=== PATIENT | male | born 1945 | race Caucasian/White ===

== ENCOUNTER 2017-08-16 10:44 | Inpatient (IN) | payer MEDICARE, MEDICAID ==
[~2017-08-16] VITALS: Ht 182.9 cm; Wt 96.9 kg
[2017-08-16] MEDS ORDERED: HYDR-305 PO (11:02)
[2017-08-16] MEDS ORDERED: LISI-660 PO (11:02)
[2017-08-16] MEDS ORDERED: TIZA4TAB4 PO (11:02)
[2017-08-16] MEDS ORDERED: METF500T4 PO (11:02)
[2017-08-16] MEDS ORDERED: PREG50 PO (11:02)
[2017-08-16] MEDS ORDERED: DOXA2TAB PO (11:02)
[2017-08-16 11:23] LABS: BASOPHILS % (AUTO) 1.3 % (0.0-2.0); EOSINOPHILS % (AUTO) 1.5 % (1.0-6.0); HEMATOCRIT 38.4 % (41-53); LYMPHOCYTES # (AUTO) 1.9 K/uL (1.0-4.8); LYMPHOCYTES % (AUTO) 26.1 % (22.0-44.0); MEAN CORPUSCULAR HEMOGLOBIN 30.6 pg (26.0-34.0); MEAN CORPUSCULAR HGB CONC 33.9 G/dL (31.0-37.0); MEAN CORPUSCULAR VOLUME 90 fL (80-100); MONOCYTES # (AUTO) 0.3 K/uL (0.1-1.0); MONOCYTES % (AUTO) 4.6 % (2.0-9.0); NEUTROPHILS # (AUTO) 4.8 K/uL (1.8-7.7); NEUTROPHILS % (AUTO) 66.5 % (40.0-70.0); PLATELET COUNT (AUTO) 295 K/uL (150-450); RED BLOOD CELL COUNT(AUTO) 4.26 MIL/uL (4.50-5.90); WHITE BLOOD COUNT (AUTO) 7.2 K/uL (4.5-11.0)
[2017-08-16 11:27] LABS: GLUCOSE,POINT OF CARE 98 MG/DL (70-110)
[2017-08-16 11:59] LABS: ANION GAP 11 mmol/L (8-16); CALCIUM, TOTAL 8.6 mg/dL (8.8-10.5); CARBON DIOXIDE 23 mmol/L (22-29); CHLORIDE 106 mmol/L (98-107); CREATININE 1.43 mg/dL (0.60-1.30); GLOMERULAR FILTR. RATE CALC 49 mL/min (>60); POTASSIUM 4.1 mmol/L (3.5-5.1); SODIUM SERUM 140 mmol/L (136-145); UREA NITROGEN, BLOOD 9 mg/dL (7-18)
[2017-08-16 12:06] LABS: ALANINE AMINOTRANSFERASE 33 U/L (12-78); ALBUMIN 3.9 g/dL (3.4-5.0); ASPARTATE AMINOTRANSFERASE 26 U/L (15-37); BILIRUBIN,TOTAL 0.3 mg/dL (0.1-1.0); TOTAL PROTEIN, SERUM 8.3 g/dL (6.4-8.2)
[2017-08-16] MEDS ORDERED: HALOPERIDOL 5 MG TABLET PO PRN (12:45)
[2017-08-16] MEDS ORDERED: LORazepam 2 MG TABLET PO PRN (12:45)
[2017-08-16 14:37] VITALS: BP 118/82
[2017-08-16] MEDS ORDERED: PNEUMOCOCCAL VACCINE POLYVALENT 0.5 ML VIAL [PPSV23] IM ONE (15:15)
[2017-08-16 15:16] LABS: GLUCOSE,POINT OF CARE 109 MG/DL (70-110)
[2017-08-16 16:11] VITALS: BP 113/78
[2017-08-16] MEDS: ZOLPIDEM TARTRATE 10 MG TABLET PO PRN (21:32)
[2017-08-17 00:01] VITALS: BP 111/82
[2017-08-17 08:26] VITALS: BP 102/72
[2017-08-17 08:48] LABS: CHOL/HDL RATIO 5.3 (4.2-7.3)
[2017-08-17] MEDS: DENTURE ADHESIVE 68 GM CREAM DT PRN (13:50)
[2017-08-17 16:14] VITALS: BP 128/81
[2017-08-17] MEDS ORDERED: GLUCAGON,HUMAN RECOMBINANT 1 MG VIAL IM PRN (18:00)
[2017-08-17] MEDS ORDERED: INSULIN ASPART 100 UNITS/ML SQ PRN (18:00)
[2017-08-17 20:37] LABS: GLUCOSE,POINT OF CARE 159 MG/DL (70-110)
[2017-08-17] MEDS: ZOLPIDEM TARTRATE 10 MG TABLET PO PRN (21:03)
[2017-08-18 01:25] VITALS: BP 118/77
[2017-08-18 05:06] VITALS: BP 123/91
[2017-08-18] MEDS: IBUPROFEN 600 MG TABLET PO PRN ×2 (05:08→17:23)
[2017-08-18 06:23] LABS: GLUCOSE,POINT OF CARE 114 MG/DL (70-110)
[2017-08-18] MEDS: MetFORMIN HCL 500 MG TABLET PO SCH ×2 (06:26→16:53)
[2017-08-18 08:10] LABS: BASOPHILS # (AUTO) 0.03 K/uL (0.00-0.20); BASOPHILS % (AUTO) 0.4 % (0.0-2.0); EOSINOPHILS # (AUTO) 0.12 K/uL (0.00-0.70); EOSINOPHILS % (AUTO) 1.81 % (1.0-6.0); HEMATOCRIT 39.1 % (41-53); HEMOGLOBIN 13.3 g/dL (13.5-17.5); LYMPHOCYTES # (AUTO) 1.6 K/uL (1.0-4.8); LYMPHOCYTES % (AUTO) 24.8 % (22.0-44.0); MEAN CORPUSCULAR HEMOGLOBIN 30.5 pg (26.0-34.0); MEAN CORPUSCULAR HGB CONC 34.1 G/dL (31.0-37.0); MEAN CORPUSCULAR VOLUME 89 fL (80-100); MONOCYTES # (AUTO) 0.3 K/uL (0.1-1.0); MONOCYTES % (AUTO) 5.1 % (2.0-9.0); NEUTROPHILS # (AUTO) 4.3 K/uL (1.8-7.7); NEUTROPHILS % (AUTO) 67.9 % (40.0-70.0); PLATELET COUNT (AUTO) 294 K/uL (150-450); RED BLOOD CELL COUNT(AUTO) 4.38 MIL/uL (4.50-5.90); RED CELL DISTRIBUTION WIDTH 13.8 % (11.5-14.5); WHITE BLOOD COUNT (AUTO) 6.4 K/uL (4.5-11.0)
[2017-08-18 08:20] VITALS: BP 113/74
[2017-08-18] MEDS: ARIPiprazole 5 MG TABLET PO SCH (08:49)
[2017-08-18] MEDS: DOXAZOSIN MESYLATE 2 MG TABLET PO SCH ×2 (08:49→17:00)
[2017-08-18] MEDS: LISINOPRIL 5 MG TABLET PO SCH (08:49)
[2017-08-18] MEDS: VENLAFAXINE HCL 150 MG ER CAPSULE PO SCH (08:49)
[2017-08-18 09:17] LABS: HEMOGLOBIN A1C 6.1 % (4.5-6.2)
[2017-08-18 09:20] LABS: ALANINE AMINOTRANSFERASE 28 U/L (12-78); ALBUMIN 3.6 g/dL (3.4-5.0); ANION GAP 10 mmol/L (8-16); ASPARTATE AMINOTRANSFERASE 22 U/L (15-37); BILIRUBIN,TOTAL 0.3 mg/dL (0.1-1.0); CALCIUM, TOTAL 8.6 mg/dL (8.8-10.5); CARBON DIOXIDE 24 mmol/L (22-29); CHLORIDE 105 mmol/L (98-107); CHOL/HDL RATIO 5.2 (4.2-7.3); CREATINE KINASE MB 0.6 ng/mL (0-5); CREATINE KINASE, TOTAL 93 U/L (39-308); CREATININE 1.36 mg/dL (0.60-1.30); GLOMERULAR FILTR. RATE CALC 52 mL/min (>60); POTASSIUM 4.1 mmol/L (3.5-5.1); SODIUM SERUM 139 mmol/L (136-145); THYROID STIMULATING HORMONE 1.51 uIU/mL (0.36-3.74); TOTAL PROTEIN, SERUM 7.9 g/dL (6.4-8.2); UREA NITROGEN, BLOOD 14 mg/dL (7-18)
[2017-08-18] MEDS: BACITRACIN 28.4 GM OINTMENT TP SCH ×2 (09:37→16:54)
[2017-08-18 10:13] LABS: VITAMIN B12 LEVEL 580 pg/mL (211-911)
[2017-08-18 11:22] LABS: GLUCOSE,POINT OF CARE 105 MG/DL (70-110)
[2017-08-18] MEDS ORDERED: BENZOCAINE 10% 7 GM GEL TP PRN (14:30)
[2017-08-18 16:05] VITALS: BP 107/66
[2017-08-18 16:32] LABS: GLUCOSE,POINT OF CARE 109 MG/DL (70-110)
[2017-08-18 17:25] VITALS: BP 104/68
[2017-08-18 20:37] LABS: GLUCOSE,POINT OF CARE 111 MG/DL (70-110)
[2017-08-18] MEDS: ZOLPIDEM TARTRATE 10 MG TABLET PO PRN (20:52)
[2017-08-19 02:29] VITALS: BP 111/82
[2017-08-19] MEDS: IBUPROFEN 600 MG TABLET PO PRN (02:30)
[2017-08-19 04:30] VITALS: BP 110/74
[2017-08-19] MEDS: ACETAMINOPHEN 325 MG TABLET PO PRN (04:35)
[2017-08-19 06:22] LABS: GLUCOSE,POINT OF CARE 104 MG/DL (70-110)
[2017-08-19] MEDS: MetFORMIN HCL 500 MG TABLET PO SCH ×2 (06:59→16:35)
[2017-08-19 08:11] LABS: HEPATITIS Bs ANTIGEN SCREEN P Negative (Negative); HEPATITIS C AB SCREEN <0.1 s/co ratio (0.0-0.9)
[2017-08-19 08:23] VITALS: BP 112/61
[2017-08-19] MEDS: LISINOPRIL 5 MG TABLET PO SCH (08:24)
[2017-08-19] MEDS: VENLAFAXINE HCL 150 MG ER CAPSULE PO SCH (08:24)
[2017-08-19] MEDS: DOXAZOSIN MESYLATE 2 MG TABLET PO SCH ×2 (08:24→16:36)
[2017-08-19] MEDS: ARIPiprazole 5 MG TABLET PO SCH (08:24)
[2017-08-19] MEDS: BACITRACIN 28.4 GM OINTMENT TP SCH ×2 (08:32→16:36)
[2017-08-19 11:54] LABS: GLUCOSE,POINT OF CARE 99 MG/DL (70-110)
[2017-08-19] MEDS: LIDOCAINE HCL 5% TRANSDERMAL PATCH TD SCH (13:02)
[2017-08-19 16:06] VITALS: BP 122/65
[2017-08-19 16:49] LABS: GLUCOSE,POINT OF CARE 107 MG/DL (70-110)
[2017-08-19 20:32] LABS: GLUCOSE,POINT OF CARE 107 MG/DL (70-110)
[2017-08-19] MEDS: -LIDODERM PATCH NOTE- MISC SCH ×2 (20:36)
[2017-08-19] MEDS: ZOLPIDEM TARTRATE 10 MG TABLET PO PRN (21:14)
[2017-08-20 05:23] VITALS: BP 106/69
[2017-08-20 07:02] LABS: GLUCOSE,POINT OF CARE 103 MG/DL (70-110)
[2017-08-20] MEDS: MetFORMIN HCL 500 MG TABLET PO SCH ×2 (07:20→16:57)
[2017-08-20 08:54] VITALS: BP 107/70
[2017-08-20 08:59] VITALS: BP 115/81
[2017-08-20] MEDS: LISINOPRIL 5 MG TABLET PO SCH (08:59)
[2017-08-20] MEDS: LIDOCAINE HCL 5% TRANSDERMAL PATCH TD SCH (08:59)
[2017-08-20] MEDS: BACITRACIN 28.4 GM OINTMENT TP SCH ×2 (08:59→16:57)
[2017-08-20] MEDS: VENLAFAXINE HCL 150 MG ER CAPSULE PO SCH (08:59)
[2017-08-20] MEDS: ARIPiprazole 5 MG TABLET PO SCH (08:59)
[2017-08-20] MEDS: DOXAZOSIN MESYLATE 2 MG TABLET PO SCH ×2 (08:59→16:57)
[2017-08-20 12:48] LABS: GLUCOSE,POINT OF CARE 111 MG/DL (70-110)
[2017-08-20 12:57] VITALS: BP 112/78
[2017-08-20] MEDS: IBUPROFEN 600 MG TABLET PO PRN (12:57)
[2017-08-20 16:14] VITALS: BP 117/63
[2017-08-20 17:02] LABS: GLUCOSE,POINT OF CARE 109 MG/DL (70-110)
[2017-08-20] MEDS: DENTURE ADHESIVE 68 GM CREAM DT PRN (18:44)
[2017-08-20] MEDS: ZOLPIDEM TARTRATE 10 MG TABLET PO PRN (20:57)
[2017-08-20] MEDS: -LIDODERM PATCH NOTE- MISC SCH ×2 (20:57)
[2017-08-20 21:13] LABS: GLUCOSE,POINT OF CARE 115 MG/DL (70-110)
[2017-08-21 02:43] VITALS: BP 106/65
[2017-08-21] MEDS: IBUPROFEN 600 MG TABLET PO PRN (06:28)
[2017-08-21 06:33] LABS: GLUCOSE,POINT OF CARE 102 MG/DL (70-110)
[2017-08-21] MEDS: MetFORMIN HCL 500 MG TABLET PO SCH ×2 (06:45→16:43)
[2017-08-21 08:06] VITALS: BP 120/70
[2017-08-21] MEDS: LISINOPRIL 5 MG TABLET PO SCH (08:09)
[2017-08-21] MEDS: ARIPiprazole 5 MG TABLET PO SCH (08:10)
[2017-08-21] MEDS: DOXAZOSIN MESYLATE 2 MG TABLET PO SCH ×2 (08:10→16:43)
[2017-08-21] MEDS: VENLAFAXINE HCL 150 MG ER CAPSULE PO SCH (08:10)
[2017-08-21] MEDS: LIDOCAINE HCL 5% TRANSDERMAL PATCH TD SCH (08:15)
[2017-08-21] MEDS: BACITRACIN 28.4 GM OINTMENT TP SCH ×2 (08:15→16:44)
[2017-08-21 11:53] LABS: GLUCOSE,POINT OF CARE 106 MG/DL (70-110)
[2017-08-21 16:33] VITALS: BP 121/66
[2017-08-21] MEDS: ZOLPIDEM TARTRATE 10 MG TABLET PO PRN (20:57)
[2017-08-21] MEDS: -LIDODERM PATCH NOTE- MISC SCH ×2 (20:57)
[2017-08-22 06:04] LABS: GLUCOSE,POINT OF CARE 103 MG/DL (70-110)
[2017-08-22 06:04] LABS: GLUCOSE,POINT OF CARE 98 MG/DL (70-110)
[2017-08-22] MEDS: IBUPROFEN 600 MG TABLET PO PRN ×2 (06:22→13:28)
[2017-08-22] MEDS: MetFORMIN HCL 500 MG TABLET PO SCH (06:40)
[2017-08-22 07:03] LABS: GLUCOSE,POINT OF CARE 95 MG/DL (70-110)
[2017-08-22] MEDS: VENLAFAXINE HCL 150 MG ER CAPSULE PO SCH (08:44)
[2017-08-22] MEDS: ARIPiprazole 5 MG TABLET PO SCH (08:44)
[2017-08-22] MEDS: DOXAZOSIN MESYLATE 2 MG TABLET PO SCH ×2 (08:44→17:02)
[2017-08-22] MEDS: BACITRACIN 28.4 GM OINTMENT TP SCH ×2 (08:44→17:02)
[2017-08-22] MEDS: LISINOPRIL 5 MG TABLET PO SCH (08:44)
[2017-08-22] MEDS: LIDOCAINE HCL 5% TRANSDERMAL PATCH TD SCH (08:45)
[2017-08-22 08:57] VITALS: BP 123/71
[2017-08-22 11:38] LABS: GLUCOSE,POINT OF CARE 97 MG/DL (70-110)
[2017-08-22 13:28] VITALS: BP 123/81
[2017-08-22 16:05] VITALS: BP 110/74
[2017-08-22 16:27] LABS: GLUCOSE,POINT OF CARE 122 MG/DL (70-110)
[2017-08-22] MEDS: -LIDODERM PATCH NOTE- MISC SCH ×2 (20:31)
[2017-08-22 20:32] LABS: GLUCOSE,POINT OF CARE 102 MG/DL (70-110)
[2017-08-23] MEDS: ZOLPIDEM TARTRATE 10 MG TABLET PO PRN ×2 (00:06→22:13)
[2017-08-23 00:15] VITALS: BP 123/72
[2017-08-23] MEDS: IBUPROFEN 600 MG TABLET PO PRN ×2 (05:41→16:19)
[2017-08-23 06:22] LABS: GLUCOSE,POINT OF CARE 105 MG/DL (70-110)
[2017-08-23 08:00] VITALS: BP 114/82
[2017-08-23] MEDS: ARIPiprazole 5 MG TABLET PO SCH (09:55)
[2017-08-23] MEDS: LIDOCAINE HCL 5% TRANSDERMAL PATCH TD SCH (09:55)
[2017-08-23] MEDS: LISINOPRIL 5 MG TABLET PO SCH (09:55)
[2017-08-23] MEDS: MetFORMIN HCL 500 MG TABLET PO SCH (09:56)
[2017-08-23] MEDS: DOXAZOSIN MESYLATE 2 MG TABLET PO SCH ×2 (09:56→16:55)
[2017-08-23] MEDS: VENLAFAXINE HCL 150 MG ER CAPSULE PO SCH (09:56)
[2017-08-23 11:32] LABS: GLUCOSE,POINT OF CARE 113 MG/DL (70-110)
[2017-08-23 16:17] VITALS: BP 117/76
[2017-08-23 16:47] LABS: GLUCOSE,POINT OF CARE 95 MG/DL (70-110)
[2017-08-23 20:27] LABS: GLUCOSE,POINT OF CARE 117 MG/DL (70-110)
[2017-08-23] MEDS: -LIDODERM PATCH NOTE- MISC SCH ×2 (20:34)
[2017-08-24 01:21] VITALS: BP 115/66
[2017-08-24] MEDS: IBUPROFEN 600 MG TABLET PO PRN ×2 (06:10→13:08)
[2017-08-24] MEDS: DENTURE ADHESIVE 68 GM CREAM DT PRN (06:11)
[2017-08-24 07:02] LABS: GLUCOSE,POINT OF CARE 96 MG/DL (70-110)
[2017-08-24 08:16] VITALS: BP 103/61
[2017-08-24] MEDS: ARIPiprazole 5 MG TABLET PO SCH (08:33)
[2017-08-24] MEDS: VENLAFAXINE HCL 150 MG ER CAPSULE PO SCH (08:33)
[2017-08-24] MEDS: MetFORMIN HCL 500 MG TABLET PO SCH (08:33)
[2017-08-24] MEDS: LIDOCAINE HCL 5% TRANSDERMAL PATCH TD SCH (08:33)
[2017-08-24] MEDS: DOXAZOSIN MESYLATE 2 MG TABLET PO SCH ×2 (08:42→16:38)
[2017-08-24] MEDS: LISINOPRIL 5 MG TABLET PO SCH (08:42)
[2017-08-24] MEDS ORDERED: BENZOCAINE 10% 7 GM GEL TP PRN ×2 (09:00→11:30)
[2017-08-24 13:08] VITALS: BP 108/64
[2017-08-24 16:13] VITALS: BP 127/71
[2017-08-24 16:47] LABS: GLUCOSE,POINT OF CARE 107 MG/DL (70-110)
[2017-08-24] MEDS: AMOX TR/POT CLAV 875 MG/125 MG TABLET PO SCH (18:00)
[2017-08-24] MEDS: -LIDODERM PATCH NOTE- MISC SCH ×2 (21:07)
[2017-08-24] MEDS: ZOLPIDEM TARTRATE 10 MG TABLET PO PRN (21:27)
[2017-08-25 01:54] VITALS: BP 117/69
[2017-08-25 05:04] VITALS: BP 120/68
[2017-08-25] MEDS: IBUPROFEN 600 MG TABLET PO PRN ×2 (05:08→14:00)
[2017-08-25] MEDS: MetFORMIN HCL 500 MG TABLET PO SCH (06:44)
[2017-08-25 08:14] VITALS: BP 122/68
[2017-08-25] MEDS: LISINOPRIL 5 MG TABLET PO SCH (08:21)
[2017-08-25] MEDS: DOXAZOSIN MESYLATE 2 MG TABLET PO SCH ×2 (08:21→16:41)
[2017-08-25] MEDS: ARIPiprazole 5 MG TABLET PO SCH (08:21)
[2017-08-25] MEDS: VENLAFAXINE HCL 75 MG ER CAPSULE PO SCH (08:21)
[2017-08-25] MEDS: AMOX TR/POT CLAV 875 MG/125 MG TABLET PO SCH ×2 (08:21→16:41)
[2017-08-25] MEDS: LIDOCAINE HCL 5% TRANSDERMAL PATCH TD SCH (08:22)
[2017-08-25 11:18] LABS: GLUCOSE,POINT OF CARE 101 MG/DL (70-110)
[2017-08-25] MEDS: DENTURE ADHESIVE 68 GM CREAM DT PRN (12:10)
[2017-08-25 14:00] VITALS: BP 118/70
[2017-08-25 16:03] VITALS: BP 127/73
[2017-08-25] MEDS: ACETAMINOPHEN 325 MG TABLET PO PRN (18:49)
[2017-08-25] MEDS: -LIDODERM PATCH NOTE- MISC SCH ×2 (20:54)
[2017-08-25] MEDS: ZOLPIDEM TARTRATE 10 MG TABLET PO PRN (20:54)
[2017-08-26 02:26] VITALS: BP 128/67
[2017-08-26] MEDS: MetFORMIN HCL 500 MG TABLET PO SCH (06:41)
[2017-08-26] MEDS: IBUPROFEN 600 MG TABLET PO PRN (06:42)
[2017-08-26] MEDS: AMOX TR/POT CLAV 875 MG/125 MG TABLET PO SCH (08:12)
[2017-08-26] MEDS: LISINOPRIL 5 MG TABLET PO SCH (08:12)
[2017-08-26] MEDS: ARIPiprazole 5 MG TABLET PO SCH (08:12)
[2017-08-26] MEDS: VENLAFAXINE HCL 75 MG ER CAPSULE PO SCH (08:12)
[2017-08-26] MEDS: DOXAZOSIN MESYLATE 2 MG TABLET PO SCH (08:12)
[2017-08-26] MEDS: LIDOCAINE HCL 5% TRANSDERMAL PATCH TD SCH (08:14)
[2017-08-26 08:24] VITALS: BP 132/74
[2017-08-26] MEDS ORDERED: LIDO700A15 TD (09:40)
[2017-08-26] MEDS ORDERED: ARIP5TAB8 PO (09:40)
[2017-08-26] MEDS ORDERED: VENL-67 PO (09:40)
[2017-08-26 09:56] LABS: GLUCOSE,POINT OF CARE 131 MG/DL (70-110)
[2017-08-26 10:12] LABS: GLUCOSE,POINT OF CARE 113 MG/DL (70-110)
== END 2017-08-26 14:25 | disposition home or self-care (01) | DRG 885 ==
LOC: EMS 10:46 → AHU 11:49 → B2X 12:29
PROC: 3E0234Z Introduction of Serum, Toxoid and Vaccine into Muscle, Percutaneous Approach (ICD-10-PCS; principal; 2017-08-16)
DX: F33.3 Major depressive disorder, recurrent, severe with psychotic symptoms (principal); R45.851 Suicidal ideations; E11.9 Type 2 diabetes mellitus without complications; F11.20 Opioid dependence, uncomplicated; D64.9 Anemia, unspecified; E78.5 Hyperlipidemia, unspecified; I10 Essential (primary) hypertension; F41.9 Anxiety disorder, unspecified; M79.7 Fibromyalgia; G89.29 Other chronic pain; K02.9 Dental caries, unspecified; M19.90 Unspecified osteoarthritis, unspecified site; S61.511A Laceration without foreign body of right wrist, initial encounter; S61.512A Laceration without foreign body of left wrist, initial encounter; Z91.14 Patient's other noncompliance with medication regimen; Z91.5 Personal history of self-harm; W45.8XXA Other foreign body or object entering through skin, initial encounter; Y93.89 Activity, other specified; Y92.89 Other specified places as the place of occurrence of the external cause; Y99.8 Other external cause status; Z23 Encounter for immunization
CPT/HCPCS: 80074; 82306; 82607; 82746; 82962; 83036; 83735; 84439; 84443; 90471; 99285; G0480